=== PATIENT | male | born 1965 | race Caucasian/White ===

== ENCOUNTER 2017-05-17 08:12 | Outpatient (CLI) | payer BC ==
--- NOTE | 2017-05-17 09:48 | MRI ---
MRI CERVICAL SPINE: Date: 05-17-17 Provided Clinical History: Cervical radiculopathy. FINDINGS: There is reversal of the normal cervical lordosis. Cervical alignment appears otherwise normal. Verte bral body heights appear preserved. No focal concerning regional marrow signal abnormality is evident . There is cerebellar tonsillar ectopia. The visualized posterior fossa, cervicomedullary junction an d cervical spine cord demonstrate an otherwise unremarkable MR appearance. C2-3: There is no significant central canal or foraminal narrowing apparent. C3-4: There is no significant central canal or neural foraminal narrowing apparent. C4-5: There is no significant central canal or neural foraminal narrowing apparent. C5-6: There is a broad based disc osteophyte complex. This combines with uncinate process hypertrophy to the right of midline to produce moderate-severe foraminal narrowing. The left neural foramen appe ars preserved. There is effacement of the ventral subarachnoid space without cord contact or deformit y. C6-7: There is a broad based disc osteophyte complex which effaces the ventral subarachnoid space wit hout cord contact or deformity. There is bilateral foraminal narrowing. C7-T1: There is no significant central canal or foraminal narrowing apparent. IMPRESSION: Cervical degenerative changes producing areas of primarily foraminal narrowing as described above. POS: [facility]
== END 2017-05-17 08:13 | disposition home or self-care (01) ==
LOC: TBSIIMAG 08:12
PROVIDERS: ATTEND Neurological Surgery
DX: M47.22 Other spondylosis with radiculopathy, cervical region (principal); M99.81 Other biomechanical lesions of cervical region
CPT/HCPCS: 72141